=== PATIENT | female | born 1985 | race Caucasian/White ===

== ENCOUNTER 2016-07-01 08:09 | Inpatient (IN) | payer OTHER ==
[2016-07-01] MEDS ORDERED: ANCEF/STERILE WATER 2 GM/20 ML IV NR (09:00)
--- NOTE | 2016-07-01 10:12 | Anesthesia Consultation ---
Anesthesia Consult and Med Hx - Airway Anesthetic Teeth Evaluation: Good ROM Head & Neck: Adequate Mental/Hyoid Distance: Adequate Mallampati Class: Class II Intubation Access Assessment: Probably Good - Pulmonary Exam CTA: Yes - Cardiac Exam Cardiac Exam: RRR - Pre-Operative Health Status ASA Pre-Surgery Classification: ASA2 Proposed Anesthetic Plan: General (No previous anesthesia problems) - Pulmonary Hx Smoking: No Hx Sleep Apnea: No - Central Nervous System Hx Psychiatric Problems: No - Other Systems Hx Cancer: Yes (L Breast CA)
[2016-07-01] MEDS ORDERED: LACTATED RINGERS 1,000 ML IV SCH (10:17)
[2016-07-01] MEDS ORDERED: NEURONTIN PO NR ×2 (10:17→11:00)
[2016-07-01] MEDS ORDERED: DILAUDID ONE ×2 (10:47→17:38)
[2016-07-01] MEDS ORDERED: DIPRIVAN 10 MG/ML IV ONE (10:47)
[2016-07-01] MEDS ORDERED: MARCAINE-EPI/PF 0.5%-1:200,000 INFILTRATI ONE (10:49)
[2016-07-01] MEDS ORDERED: XYLOCAINE MPF 2% ONE (10:49)
[2016-07-01] MEDS ORDERED: DECADRON ONE ×2 (10:49→10:50)
[2016-07-01] MEDS ORDERED: MARCAINE-EPI 0.5%-1:200,000 INFILTRATI ONE (10:49)
[2016-07-01] MEDS ORDERED: ZOFRAN ONE (10:50)
[2016-07-01] MEDS ORDERED: ROBINUL ONE (10:50)
[2016-07-01] MEDS ORDERED: BLOXIVERZ ONE (10:50)
[2016-07-01] MEDS ORDERED: ZEMURON IV ONE (10:50)
[2016-07-01] MEDS: VERSED IV NR ×3 (10:58→11:06)
[2016-07-01] MEDS ORDERED: PEPCID IV NR (11:00)
[2016-07-01] MEDS ORDERED: NACL 0.9% IR ONE (12:53)
[2016-07-01] MEDS ORDERED: WATER FOR IRRIG STERILE IR ONE (12:53)
[2016-07-01] MEDS ORDERED: NEO SYNEPHRINE ONE (14:00)
[2016-07-01] MEDS ORDERED: ePHEDrine SULFATE ONE (14:01)
--- NOTE | 2016-07-01 14:59 | Admit Criteria Form ---
Admission Criteria Documentation: AMBULATORY SURGERY EXCEPTION CRITERIA Ambulatory Surgery Exception Criteria ( Place 'X' for any and all applicable criteria): Surgery or procedure performed on ambulatory basis may require inpatient stay for[A] ANY ONE of the following(1)(2)(3)(4)(5)(6)(7)(8)(9): [X] I. A preoperative situation, condition, or finding that warrants inpatient stay as indicated by ANY ONE of the following: [] a) Inpatient care needed because of severity of a disease or condition rather than the surgery (eg, severe cardiac or respiratory disease, severe infection) (15) (16 ) (17) (18) [] b) Emergent procedure (eg, angioplasty for acute ischemia)(19) [X] c) Complex surgical approach or situation as indicated by ANY ONE of the following(3): [] i) Open approach needed instead of usual endoscopic, transcatheter, or other less invasive procedure [] ii) Difficult approach because of previous operation [] iii) Airway monitoring required after open neck procedures(20)(21) [X] iv) Large mass requiring unusually extensive dissection [] v) Additional complicating feature requiring inpatient care (eg, drain management)(22(23): [] d) Major surgery in a pt with high anesthetic risk as indicated by ANY ONE of the following (2)(3)(5)(7)(8): [] i) ASA risk class III or higher (severe systemic disease impairing function) [D] [] ii) Advanced age (eg, older than 85 years)(14)(24) [] iii) Symptomatic heart failure(25) [] iv) Symptomatic asthma or COPD(8)(21) [] v) Morbid obesity with hemodynamic or respiratory problems(20)( 21)(26)(27) [] vi) Obstructive sleep apnea(20)(21) [] vii) Former premature infants who are younger than 60 weeks [] viii) High risk for severe postoperative abnormalities (eg, severe postoperative hypocalcemia after parathyroidectomy for severe hyperparathyroidism)(27)( 28) [] ix) Unstable angina(25) [] e) Drug-related risk requiring inpatient stay as indicated by ANY ONE of the following(5)(10)(14)(32)(33) [] i) Procedure requires discontinuing drugs or other therapy (eg , antiarrhythmic medication, antiseizure medication), which necessitates inpatient observation or treatment.(18)(31) [] ii) Major surgery and high risk drug use as indicated by ANY ONE of the following: [] 1) Active abuse of cocaine or similar drug [] 2) Monoamine oxidase inhibitor use [] 3) Other drug identified as posing risk [] f) Inadequate outpatient care situation as indicated by ANY ONE of the following(5)(10)(14)(32)(33) [] i) Patient lives remote from medical facility and procedure has urgent complication potential, and temporary nearby residence cannot be arranged [] ii) Patient will have postprocedure incapacitation and inadequate assistance at home, or alternative level of care cannot be arranged. [] iii) Patient will have long general anesthesia or procedure side effect resolution time, and competent person to stay with patient on first postoperative night at home or alternative level of care cannot be arranged. []iv) Other inadequate outpatient situation that cannot be handled by other means [] II. A perioperative event, condition, or finding that warrants inpatient stay as indicated by ANY ONE of the following (1)(2)(3): [] a) Inadequate physiologic recovery: cardiovascular, respiratory, or hemodynamic status not normal or near preoperative baseline(18) [] b) Hemodynamic instability [] c) Patient not alert with near normal or baseline mental status [] d) Temperature not normal or as expected and not appropriate for outpatient treatment of condition [] e) Ambulatory or appropriate activity level status not yet achieved post procedure [E](34)(35)(36) [] f) Operative site not appropriate (eg, unexpected or excessive drainage or bleeding) [] g) Postoperative effects not resolved or adequately managed (eg, significant pain or vomiting not appropriate for outpatient or next level of care)(10)(12) [] h) Complicating features requiring inpatient care as indicated by ANY ONE of the following(37): [] i) Severe complications of procedure (eg, bowel injury, airway compromise, vascular injury,severe hemorrhage) [] ii) Extensive (eg, dissection far beyond usual scope of procedure ) or prolonged (eg, 120 minutes beyond usual) surgery needed requiring inpatient postoperative care [] iii) Conversion to an open or complex procedure that requires inpatient care (eg, open vs laparoscopic cholecystectomy, abdominal vs vaginal hysterectomy)(38) [] iv) Comorbid condition or test result identified during or post procedure that requires inpatient care (7) [] v) Malignant hyperthermia(30) [] vi) Other complicating feature requiring inpatient care(22)(23) Inpatient stay may be needed until ALL of the following are present (1)(2)(3)(4) (5)(6)(10)(14)(33)(40): []a) Physiologic recovery: cardiovascular, respiratory, and hemodynamic status normal or near preoperative baseline []b) Hemodynamic stability []c) Patient alert, with near normal or baseline mental status []d) Temperature appropriate: patient afebrile or temperature appropriate for outpt treatment of condition []e) Activity level appropriate: ambulatory or appropriate activity level post procedure []f) Operative site appropriate as indicated by ALL of the following: []i) Site dry or with expected drainage []ii) Any blood noted is as expected for procedure. []g) Postoperative effects resolved or managed as indicated by ALL of the following: []i) Pain management appropriate for outpatient (or next level of) care(10) []ii) Minimal nausea and vomiting: if present, successfully treated with oral medication(12) []iii) Headache, dizziness, or drowsiness (if present) are mild. []h) Voiding status acceptable as indicated by ANY ONE of the following: []i) Voiding spontaneously []ii) No voiding but instructions given for follow-up in 6 to 8 hours []iii) Urinary catheter in place, and instructions given for follow-up []i) Complicating features requiring inpatient care manageable at a lower level of care(37) []j) Comorbid conditions manageable at a lower level of care(37) The original [employer] content created by [employer] has been revised. The portions of the content which have been revised are identified through the use of italic text or in bold, and [facility] [employer] has neither reviewed nor approved the modified material. All other unmodified content is copyright [employer]. Please see references footnoted in the original [employer] edition 2016 Admission Criteria Met: Yes
[2016-07-01] MEDS ORDERED: ANCEF ONE (16:01)
[2016-07-01] MEDS ORDERED: NACL P/F VIAL (10 ML) 10 ML ONE (16:01)
[2016-07-01] MEDS ORDERED: LACTATED RINGERS 2,000 ML ONE (17:05)
[2016-07-01] MEDS ORDERED: NACL 0.9% 100 ML ONE (17:08)
--- NOTE | 2016-07-01 17:16 | Short Stay Summary ---
Short Stay Documentation Date of service: 07/01/16 - History H&P: obtained from office - Allergies and Medications Current Medications: Allergies No Known Allergies Allergy (Unverified 08/07/15 11:44) Home Medications Medication Instructions Recorded Confirmed Last Taken Type HYDROcodone/APAP 5-325 [[place] 1 each PO Q6HR PRN #30 tablet 07/01/16 Unknown Rx 5/325] Active Medications Cefazolin Sodium (Ancef/Sterile Water 2 Gm/20 Ml) 2 gm IV PREOP NR Stop: 07/01/16 23:59 Celecoxib (Celebrex) 200 mg PO PREOP NR Stop: 07/01/16 21:00 Last Admin: 07/01/16 10:49 Dose: 200 mg Famotidine (Pepcid) 20 mg IV PREOP NR Stop: 07/01/16 21:00 Last Admin: 07/01/16 10:55 Dose: 20 mg Gabapentin (Neurontin) 600 mg PO PREOP NR Stop: 07/01/16 21:00 Last Admin: 07/01/16 10:49 Dose: 600 mg Lactated Ringer's (Lactated Ringers) 1,000 mls @ 125 mls/hr IV DIRECT HERNANDO Stop: 07/01/16 23:59 Last Admin: 07/01/16 10:53 Dose: 125 mls/hr Midazolam HCl (Versed) 2 mg IV PREOP NR Stop: 07/01/16 21:00 Last Admin: 07/01/16 11:06 Dose: 1 mg - Brief post op/procedure progress note Date of procedure: 07/01/16 Pre-op diagnosis: 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 Post-op diagnosis: same Procedure: Right total mastectomy and left modified radical mastectomy Anesthesia: GETA Findings: Known palpable left breast cancer at the 1:00 position 4-5 cm from the nipple of 4 cm; left axillary lymphadenopathy Surgeon: RAISSA AMADOR Estimated blood loss: 50-100ml Pathology: list (left MRM and right mastectomy) Specimen disposition: to lab Condition: stable - Disposition Condition at discharge: Good Disposition: DC/TX SHORT-TERM GEN HOSP INPT Short Stay Discharge Plan Activity: other (no heavy lifting) Diet: regular Wound: other (keep inicision clean and dry and may shower in 48 hours; no baths , pools or lakes; do not rub or scrub incision) Follow up with: MICKY PATTERSON MD [Primary Care Provider] - 7 Days RAISSA AMADOR MD [Staff Physician] - 7 Days Prescriptions: HYDROcodone/APAP 5-325 [[place] 5/325] 1 each PO Q6HR PRN #30 tablet PRN Reason: Pain
[2016-07-01] MEDS ORDERED: PERCOCET 5/325 PO PRN (17:31)
[2016-07-01] MEDS ORDERED: ZOFRAN IV PRN (17:31)
[2016-07-01] MEDS ORDERED: SODIUM CHLORIDE FLUSH SYRINGE 10 ML IV PRN (17:31)
[2016-07-01] MEDS ORDERED: BENADRYL PO PRN (17:31)
[2016-07-01] MEDS ORDERED: REGLAN PO PRN (17:31)
[2016-07-01] MEDS ORDERED: TYLENOL PO PRN (17:31)
--- NOTE | 2016-07-01 17:31 | Operative Report ---
Operative Report Operative Report: Date of procedure: 07/01/2016 Pre-operative diagnosis: 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 gene mutation Post-operative diagnosis: Same Procedure name(s): Right total mastectomy and left modified radical mastectomy Surgeon: Elsa Joiner M.D. Logistics Analytics Manager: Mr. Kaiser Anesthesia: Gen. Findings: Prophylactic right total mastectomy, left modified radical mastectomy , known palpable left breast cancer mass at the 1 o'clock position about 5 cm from the nipple of 4 cm and left axillary lymphadenopathy Drains: One 19 [place] SHIMON drain 219 [place] SHIMON drains Complications: None Disposition: PACU in good condition Indications for operative procedure: This is a 31-year-old lady with known left breast cancer of the upper outer quadrant, BRCA1 positive gene mutation and stage IV breast cancer. Patient recently had a PET scan with findings of increasing size of known left breast cancer mass as well as increased [place]ghan involvement. Patient underwent neoadjuvant chemotherapy and had an excellent response with her prior area of know metastasis to the liver and bones no longer present. Patient's breast cancer was not seen after PET scan following neoadjuvant chemotherapy and was recently noted to have changes on recent PET scan with increase in size. Recommendations were to proceed with surgery to decrease disease burden. Patient wished to proceed with the above. Recommendations were also to proceed with a right prophylactic total mastectomy given patient is BRCA1 positive gene mutation. Procedure in detail: Anesthesia placed a bilateral pectoral block before going to the operating room. The patient was then taken to the operating room and was laid supine. Gen. anesthesia was administered. Bilateral breasts and axillas were prepped and draped in the normal sterile operative fashion. Skin incision marking was made for bilateral mastectomy incisions. First started with the right breast. Skin incision was made through the skin with a 10 blade knife with dissection taken down to the subcutaneous tissues with a Bovie cautery. The procedure first began with raising the superior flap to the level of the clavicle followed by raising of the inferior flap to the level of inframammary, then raising of the medial flap to the sternum and laterally at the latissimus dorsi muscle. The breast was appropriately removed from the pectoralis muscle without incident. Hemostasis was obtained with Bovie cautery. 19 [place] SHIMON drain was placed. Breast cavity was irrigated and suctioned. The subcutaneous tissues were approximated and closed with interrupted 3-0 Vicryl and skin was closed with a running 4-0 Monocryl and skin affix. Then proceeded with the left side. Known palpable left breast mass was noted at the 1 o'clock position 5 cm from nipple of 4 cm. Incision was made to ensure to encompass the breast mass. Skin incision was then made with a 10 blade knife with dissection taken down to the subcutaneous tissues. First began raising of the superior flap to the level of the clavicle followed by medial flap to the level sternum followed by inferiorly to the level of mammary fold and laterally to latissimus dorsi muscle. The breast was removed from the pectoralis muscle without incident. Attention was then taken towards the left axillary lymph node dissection. Latissimus dorsi muscle was appropriately identified as well as the axillary vein. Lymph nodes were then appropriately dissected and removed from the boundaries superiorly from the axillary vein, laterally from the thoracodorsal bundle, medially the long thoracic nerve. Both the thoracodorsal bundle and long thoracic nerve were identified and were unharmed. Lymph nodes were appropriately removed. Hemostasis was noted. The breast and axillary cavities were irrigated and suctioned. Two 19 [place] SHIMON drains were placed one in the axilla and one in the breast cavity. The subcutaneous tissues were approximated and closed with interrupted 3-0 Vicryl and skin was closed with a running 4-0 Monocryl and skin affix. The patient tolerated surgery very well and she was awakened from anesthesia without any complications and transferred to PACU in good condition.
[2016-07-01] MEDS ORDERED: MORPHINE IV PRN (17:33)
[2016-07-01] MEDS ORDERED: LACTATED RINGERS 1,000 ML ONE (18:40)
[2016-07-01] MEDS: LACTATED RINGERS 1,000 ML IV SCH ×2 (19:00→20:15)
[2016-07-01] MEDS ORDERED: DILAUDID IV PRN (20:22)
[2016-07-01] MEDS: COLACE PO SCH (22:03)
[2016-07-02 08:29] VITALS: BP 84/50
--- NOTE | 2016-07-02 09:11 | Progress Note ---
Assessment and Plan This is a 31 year old lady with left breast cancer of the upper outer quadrant and BRCA1 positive gene mutation POD# right total mastectomy and left MRM. 1. No acute events overnight. 2. Pain well controlled. 3. Bilateral chest incisions healing well and skin well perfuse. Full ROM of bilateral upper and lower extremities. 3. OOB to hallway. 4. SHIMON drain education. 5. D.C planning for today and f/u with me next . Subjective Date of service: 07/02/16 Principal diagnosis: Left breast cancer of the upper outer quadrant, stage IV Interval history: This is a 31 year old premenopausal lady with left breast cancer of the upper outer quadrant, stage IV and BRCA1 positive gene mutation status post right total mastecomy and left MRM. No acute events overnight and pain well controlled. Objective - Constitutional Vitals: Vital Signs - 12hr 07/02/16 07/02/16 07/02/16 00:00 04:40 08:00 Temperature 98.2 F 98.0 F 97.6 F Pulse Rate [ 76 72 71 Left] Respiratory 18 20 18 Rate Blood Pressure 84/59 82/52 [Left Arm] Blood Pressure 84/50 [Right Arm] General appearance: Present: no acute distress - EENT Eyes: PERRL, EOM intact ENT: hearing intact, clear oral mucosa, dentition normal Ears: bilateral: normal - Neck Neck: supple, normal ROM - Respiratory Respiratory effort: normal Respiratory: bilateral: CTA - Breasts Breasts: other (bilateral chest incisions clean, dry and intact; no hematoma; bilateral JPs to bulb suction, skin well perfused) - Cardiovascular Rhythm: regular Extremities: no ischemia, pulses intact, pulses symmetrical, No edema, normal temperature, normal color, Full ROM Extremity abnormal: edema - Gastrointestinal General gastrointestinal: Present: soft, non-tender, non-distended Rectal Exam: deferred - Genitourinary Female genitourinary: deferred - Integumentary Integumentary: clear, warm, dry - Musculoskeletal Musculoskeletal: strength equal bilaterally - Neurologic Neurologic: CNII-XII intact, moves all extremities - Psychiatric Psychiatric: appropriate mood/affect, intact judgment & insight, memory intact, cooperative
[2016-07-02] MEDS: COLACE PO SCH (09:26)
--- NOTE | 2016-07-02 13:47 | Progress Note ---
Subjective Date of service: 07/02/16 Principal diagnosis: Left breast cancer of the upper outer quadrant, stage IV Interval history: 1st POD after bilateral mastectomy Patient is comfortable. Pain is well under control. No nausea or vomiting. Being discharged by the surgeon in the good condition Objective - Constitutional Vitals: Vital Signs - 12hr 07/02/16 07/02/16 04:40 08:00 Temperature 98.0 F 97.6 F Pulse Rate [ 72 71 Left] Respiratory 20 18 Rate Blood Pressure 82/52 [Left Arm] Blood Pressure 84/50 [Right Arm]
== END 2016-07-02 09:45 | disposition short-term general hospital (02) | DRG 581 ==
LOC: OR 08:09 → OB 17:31
PROVIDERS: ADMIT Surgery; ATTEND Surgery
PROC: 07T60ZZ Resection of Left Axillary Lymphatic, Open Approach (ICD-10-PCS; principal; 2016-07-01)
PROC: 0HTV0ZZ Resection of Bilateral Breast, Open Approach (ICD-10-PCS; principal; 2016-07-01)
DX: C50.412 Malignant neoplasm of upper-outer quadrant of left female breast (principal); Z15.01 Genetic susceptibility to malignant neoplasm of breast; Z17.0 Estrogen receptor positive status [ER+]
CPT/HCPCS: 64450; 81025; 88307; J0690; J1100; J1170; J2250; J2270; J2370; J2405; J2704; J2710; J7120